=== PATIENT | female | born 1965 | race Two or more races ===

== ENCOUNTER 2020-02-13 05:20 | Day surgery (SDC) | payer OTHER ==
[2020-02-10 18:11] VITALS: BMI 32.3
[2020-02-13] MEDS ORDERED: IBUPROFEN 400 MG TABLET (FP) PO PRN (09:39)
[2020-02-13] MEDS ORDERED: ACETAMINOPHEN 325 MG TABLET (FP) PO PRN (09:39)
--- NOTE | 2020-02-13 09:39 | HP ---
History & Physical Update - History History: No Change - Physical Physical: No Change - Assessment Assessment: No Change - Plan Plan: No Change (No change in HP)
[2020-02-13] MEDS ORDERED: MIDAZOLAM HCL 2 MG/2 ML SINGLE DOSE VIAL ONE (10:00)
[2020-02-13] MEDS ORDERED: oxyCODONE HCL 5 MG TABLET PO PRN ×2 (10:43)
[2020-02-13] MEDS ORDERED: ONDANSETRON 4 MG/2 ML VIAL IVPUSH PRN (10:43)
[2020-02-13] MEDS ORDERED: LACTATED RINGERS SOLUTION 1,000 ML IV SCH (10:45)
--- NOTE | 2020-02-13 11:29 | OP ---
Operative Note - Note: Operative Date: 02/13/20 Pre-Operative Diagnosis: Endometrial polyp Operation: Hysteroscopic myomectomy. Suction DC Post-Operative Diagnosis: Same as Pre-op Surgeon: Noemi Williamson Anesthesia: General Estimated Blood Loss (mls): 10 Operative Report Dictated: Yes
--- NOTE | 2020-02-13 12:12 | OP ---
DATE OF OPERATION: 02/13/2020 PREOPERATIVE DIAGNOSIS: Endometrial polyp. OPERATION: Hysteroscopic myomectomy, suction, dilation and curettage. POSTOPERATIVE DIAGNOSIS: Endometrial polyp. SURGEON: Noemi Williamson MD ANESTHESIA: General. ESTIMATED BLOOD LOSS: 10 mL PROCEDURE: Patient was taken to the operating room, placed in the dorsal lithotomy position, prepped and draped in the usual sterile fashion. Timeout was performed in accordance with hospital regulation. Speculum was placed in the vagina. Anterior lip of the cervix was grasped with single-tooth tenaculum. Cervix was then dilated to accommodate the operative hysteroscope. Visualization after hysteroscopy had been done revealed a large endometrial polyp. Cautery and cutting of the polyp followed by suction D&C was done. This was repeated about 3 times. All specimens submitted to Pathology. Hemostasis was achieved after all instruments were removed. Patient had tolerated procedure well and was taken to recovery room in stable condition. NOEMI WILLIAMSON M.D. ELAYNE/[id number]
[2020-02-13 14:00] VITALS: BP 158/83; PULSE 58; TEMP 97.4
--- NOTE | 2020-02-16 11:30 | PATH ---
Surgical Pathology Report Patient Name: SANG RAM [facility]. Rec. #: [id number] /Age/Gender: 1965 (Age: 54) / F Account: [id number] Location: [facility] SUR[facility]ICAL Taken: 02/13/2020 Received: 02/13/2020 Reported: 02/16/2020 Physicians: Noemi Williamson M.D. Specimen(s) Received A: ENDOMETRIAL POLYP B: ENDOMETRIAL CURETTINGS Clinical History Endometrial polyp Final Diagnosis A. ENDOMETRIAL POLYP, POLYPECTOMY: ENDOMETRIAL POLYP. B. ENDOMETRIAL CURETTINGS: FRAGMENTS OF ENDOMETRIAL POLYP. SEPARATE WEAKLY PROLIFERATIVE ENDOMETRIUM AND SUBJACENT SMOOTH MUSCLE. SEPARATE FRAGMENT OF SQUAMOUS EPITHELIUM WITH NO DIAGNOSTIC ABNORMALITIES. Electronically Signed Primo Gasca M.D. Gross Description A. Received in formalin, labeled "endometrial polyp" is a horn, irregular portion of soft tissue measuring 1.0 cm. in greatest dimension. The specimen is submitted in toto in one cassette. B. Received in formalin, labeled "endometrial curettings" are multiple portions of soft tissue measuring 1.5 x 1.5 x 0.2 cm in aggregate. The specimens are submitted in toto in one cassette.
== END 2020-02-13 13:15 | disposition home or self-care (01) ==
LOC: JASU-SURG 05:20
PROVIDERS: ATTEND Obstetrics & Gynecology
PROC: 0UB98ZX Excision of Uterus, Via Natural or Artificial Opening Endoscopic, Diagnostic (ICD-10-PCS; principal; 2020-02-13 09:30)
PROC: 0UDB8ZX Extraction of Endometrium, Via Natural or Artificial Opening Endoscopic, Diagnostic (ICD-10-PCS; 2020-02-13 09:30)
DX: N84.0 Polyp of corpus uteri (principal)
CPT/HCPCS: 36415; 84703; 86850; 86900; 86901; 88305-TC; 94760